=== PATIENT | female | born 1950 | race Caucasian/White ===

== ENCOUNTER 2023-09-23 10:36 | Emergency (ER) | payer OTHER ==
[2023-09-23] MEDS ORDERED: PHENAZOPYRIDINE HCL 100 MG TABLET (FP) ONE (10:51)
[2023-09-23] MEDS: PHENAZOPYRIDINE HCL 100 MG TABLET (FP) PO ONE (11:00)
[2023-09-23 11:04] VITALS: BP 158/106; PULSE 116; RESP 16; TEMP 97.9; BMI 17.2
[2023-09-23] MEDS ORDERED: CEPHALEXIN MONOHYDRATE 500 MG CAPSULE (UD) ONE (11:39)
[2023-09-23] MEDS: CEPHALEXIN MONOHYDRATE 500 MG CAPSULE (UD) PO ONE (11:40)
== END 2023-09-23 11:45 | disposition home or self-care (01) ==
LOC: FER 10:36
DX: R30.0 Dysuria (principal); N30.01 Acute cystitis with hematuria; R35.0 Frequency of micturition; Z20.822 Contact with and (suspected) exposure to COVID-19
CPT/HCPCS: 0241U-QW; 81003; 81015; 87086; 87186; 99283-25